=== PATIENT | male | born 1930 | race Caucasian/White ===

== ENCOUNTER 2017-11-17 07:13 | Day surgery (SDC) | payer MEDICARE ==
[~2017-11-17 07:13] MED LIST: ACET500 PO; ASPI81CH PO; BISHYD10; CALCA500CH PO; CETI10 PO; CHLO25 PO; CHOL10002 PO; CONEST.625 PO; CYAN1000 PO; Coumadin2.5 MG PO; EYE VITAMIN; FOLI1 PO; FOSI10; FOSI10 PO; GABA300 PO; GLIP2.5ER PO; HYDACE10B PO; HYOS0.375T PO; IRON150C PO; LANS30EC PO; LEVSOD112; LEVSOD50 PO; LOSA50 PO; MEMA10 PO; METO50ER PO; OLME20 PO; OMEP20ER PO; PRIM50 PO; PROP20 PO; PROSTATE; SERT25 PO; TRAZ50 PO; VALS80 PO; VICODIN 5-3001 EACH PO; WARF2.5 PO; WARF3 PO; WARF5 PO; WARF6 PO; [UNRECOGNIZED DRUG - CODE] PO; [UNRECOGNIZED DRUG - OTHER]
[2017-11-17] MEDS ORDERED: METO50ER PO (08:24)
[2017-11-17] MEDS ORDERED: PRIM50 PO (08:24)
[2017-11-17] MEDS ORDERED: CYAN500 PO (08:25)
[2017-11-17] MEDS ORDERED: LOSA50 PO (08:26)
[2017-11-17] MEDS ORDERED: CALCIUM 1,0001 EACH PO (08:27)
[2017-11-17] MEDS ORDERED: HYDR1TAB94 PO (08:27)
[2017-11-17] MEDS ORDERED: CELE200 PO (08:28)
[2018-06-25] MEDS ORDERED: WARF5 PO (14:01)
[2018-07-01] MEDS ORDERED: AMOX875 PO (10:01)
[2018-07-01] MEDS ORDERED: SACC250C PO (10:01)
== END 2017-11-17 16:17 | disposition home or self-care (01) ==
LOC: ATC 07:13
DX: I48.2 Chronic atrial fibrillation (principal); I74.3 Embolism and thrombosis of arteries of the lower extremities; Z79.01 Long term (current) use of anticoagulants; I10 Essential (primary) hypertension
CPT/HCPCS: 96372; J1650

== ENCOUNTER 2017-11-18 00:40 | Day surgery (SDC) | payer MEDICARE ==
[~2017-11-18 00:40] MED LIST changes: +CALCIUM 1,0001 EACH PO; +CELE200 PO; +CYAN500 PO; +HYDR1TAB94 PO
[2018-06-25] MEDS ORDERED: WARF5 PO (14:01)
[2018-07-01] MEDS ORDERED: AMOX875 PO (10:01)
[2018-07-01] MEDS ORDERED: SACC250C PO (10:01)
== END 2017-11-18 16:20 | disposition home or self-care (01) ==
LOC: ATC 00:40
DX: I48.2 Chronic atrial fibrillation (principal); I74.3 Embolism and thrombosis of arteries of the lower extremities; Z79.01 Long term (current) use of anticoagulants; I10 Essential (primary) hypertension
CPT/HCPCS: 96372; J1650

== ENCOUNTER 2017-11-19 03:35 | Day surgery (SDC) | payer MEDICARE ==
[2018-06-25] MEDS ORDERED: WARF5 PO (14:01)
[2018-07-01] MEDS ORDERED: SACC250C PO (10:01)
[2018-07-01] MEDS ORDERED: AMOX875 PO (10:01)
== END 2017-11-19 16:41 | disposition home or self-care (01) ==
LOC: ATC 03:35
DX: I48.2 Chronic atrial fibrillation (principal); I74.3 Embolism and thrombosis of arteries of the lower extremities; Z79.01 Long term (current) use of anticoagulants; I10 Essential (primary) hypertension
CPT/HCPCS: 96372; J1650

== ENCOUNTER 2017-12-17 02:26 | Emergency (ER) | payer MEDICARE ==
[~2017-12-17] VITALS: Ht 172.7 cm; Wt 90.7 kg
[~2017-12-17 02:26] MED LIST changes: +LEVSOD112 PO; -LEVSOD50 PO
[2017-12-17] MEDS ORDERED: WARF6 PO (03:59)
[2017-12-17 04:13] LABS: BASOPHILS ABSOLUTE AUTO 0.02 K/mm3 (0.00-0.23); BASOPHILS PERCENT AUTO 0 % (0-2); EOSINOPHILS ABSOLUTE AUTO 0.13 K/mm3 (0.00-0.68); EOSINOPHILS PERCENT AUTO 2 % (0-6); Hematocrit 36.3 % (37.0-53.0); Hemoglobin 11.9 g/dL (13.5-17.5); IMMATURE GRAN ABSOLUTE AUTO 0.04 K/mm3 (0.00-0.10); IMMATURE GRAN PERCENT AUTO 1 % (0-1); LYMPHOCYTES ABSOLUTE AUTO 1.02 K/mm3 (0.84-5.20); LYMPHOCYTES PERCENT AUTO 18 % (21-46); MONOCYTES ABSOLUTE AUTO 0.59 K/mm3 (0.16-1.47); MONOCYTES PERCENT AUTO 10 % (4-13); Mean Corpuscular HGB 30.1 pg (26.0-34.0); Mean Corpuscular HGB Conc 32.8 g/dL (31.5-36.5); Mean Corpuscular Volume 92 fL (80-100); Mean Platelet Volume 9.6 fL (9.1-12.4); NEUTROPHILS ABSOLUTE AUTO 4.03 K/mm3 (1.96-9.15); NEUTROPHILS PERCENT AUTO 69 % (41-73); Platelet Count 132 K/mm3 (150-400); RDW Coefficient Variation 14.4 % (11.7-14.2); RDW Standard Deviation 48.8 fL (35.1-46.3); Red Blood Cell Count 3.95 M/mm3 (4.30-5.90); White Blood Cell Count 5.83 K/mm3 (4.00-11.30)
[2017-12-17 04:30] LABS: Alanine Aminotransfer (ALT/SGP 75 U/L (12-78); Albumin, Blood 3.2 g/dL (3.4-5.0); Albumin/Globulin Ratio 0.9 (0.8-1.8); Alk Phos 76 U/L (50-136); Anion Gap 9 mmol/L (6-16); Aspartate Aminotrans (AST/SGOT 44 U/L (12-37); Bilirubin, Total 0.6 mg/dL (0.1-1.0); Blood Urea Nitrogen 18 mg/dL (8-24); Bun/Creatinine Ratio 23.3 (12.0-20.0); CO2, Blood 26 mmol/L (21-32); Calcium, Blood 8.2 mg/dL (8.5-10.1); Chloride, Blood 103 mmol/L (98-108); Creatinine, Blood 0.77 mg/dL (0.60-1.20); Globulin, Blood 3.6 g/dL (2.2-4.0); Glomerular Filtration Rate >60 (60-); Glucose, Blood 144 mg/dL (70-99); Potassium, Blood 3.6 mmol/L (3.5-5.5); Sodium, Blood 138 mmol/L (136-145); Total Protein, Blood 6.8 g/dL (6.4-8.2)
[2017-12-17 04:30] LABS: Influenza A Negative (NEGATIVE); Influenza B Negative (NEGATIVE)
[2017-12-17 04:38] LABS: Free Thyroxine 1.16 ng/dL (0.70-1.60)
[2017-12-17 04:39] LABS: Thyroid Stimulating Hormone 1.75 uIU/mL (0.360-4.800); Triiodothyronine, Free 1.7 pg/mL (2.18-3.98)
[2017-12-17 05:43] LABS: Source, Urine Clean Catch
[2017-12-17 05:47] LABS: Bilirubin, Urine Neg (Neg); Blood, Urine 1+ (Neg); Glucose Qualitative, Urine Neg (Neg); Ketones, Urine Neg (Neg); Leukocyte Esterase, Urine Neg (Neg); Nitrite, Urine Neg (Neg); Protein, Urine Neg (Neg); Urobilinogen, Urine NORM (Normal)
[2017-12-17 05:49] LABS: Appearance, Urine Clear (Clear); Color, Urine Yellow (P-Yellow)
[2017-12-17 05:54] LABS: Bacteria Not Seen /hpf; Squamous Epithelial Cells Not Seen /hpf (Few); White Blood Cells, Urine 0-2 /hpf (0-5)
== END 2017-12-17 06:51 | disposition home or self-care (01) ==
LOC: ER 02:26
PROVIDERS: Emergency Medicine
DX: R53.1 Weakness (principal); R53.83 Other fatigue; E03.9 Hypothyroidism, unspecified; I10 Essential (primary) hypertension; Z79.899 Other long term (current) drug therapy; Z88.6 Allergy status to analgesic agent; Z88.8 Allergy status to other drugs, medicaments and biological substances; Z86.718 Personal history of other venous thrombosis and embolism; Z87.891 Personal history of nicotine dependence
CPT/HCPCS: 51701; 71046; 80053; 81001; 84439; 84443; 84481; 85025; 87086; 87804; 99283

== ENCOUNTER 2018-05-28 16:59 | Inpatient (IN) | payer MEDICARE ==
[~2018-05-28] VITALS: Ht 188 cm; Wt 113.4 kg
[2018-05-31] MEDS ORDERED: ENOX120I SC ×2 (08:31→08:32)
[2018-06-03 07:38] LABS: International Normalized Ratio 1.08; Prothrombin Time Results 11.1 Sec (9.7-11.5)
[2018-06-04 06:14] LABS: Anion Gap 7 mmol/L (6-16); Blood Urea Nitrogen 25 mg/dL (8-24); Bun/Creatinine Ratio 24.3 (12.0-20.0); CO2, Blood 25 mmol/L (21-32); Calcium, Blood 7.8 mg/dL (8.5-10.1); Chloride, Blood 104 mmol/L (98-108); Creatinine, Blood 1.03 mg/dL (0.60-1.20); Glomerular Filtration Rate >60 (60-); Glucose, Blood 141 mg/dL (70-99); Magnesium, Blood 1.8 mg/dL (1.6-2.4); Potassium, Blood 3.8 mmol/L (3.5-5.5); Sodium, Blood 136 mmol/L (136-145)
[2018-06-04 06:33] LABS: BASOPHILS ABSOLUTE AUTO 0.03 K/mm3 (0.00-0.23); BASOPHILS PERCENT AUTO 0 % (0-2); EOSINOPHILS ABSOLUTE AUTO 0.06 K/mm3 (0.00-0.68); EOSINOPHILS PERCENT AUTO 1 % (0-6); Hemoglobin 8.5 g/dL (13.5-17.5); IMMATURE GRAN ABSOLUTE AUTO 0.13 K/mm3 (0.00-0.10); IMMATURE GRAN PERCENT AUTO 2 % (0-1); LYMPHOCYTES PERCENT AUTO 10 % (21-46); MONOCYTES ABSOLUTE AUTO 0.82 K/mm3 (0.16-1.47); MONOCYTES PERCENT AUTO 9 % (4-13); Mean Corpuscular HGB 30.5 pg (26.0-34.0); Mean Corpuscular HGB Conc 31.5 g/dL (31.5-36.5); Mean Corpuscular Volume 97 fL (80-100); Mean Platelet Volume 9.4 fL (9.1-12.4); NEUTROPHILS ABSOLUTE AUTO 6.87 K/mm3 (1.96-9.15); NEUTROPHILS PERCENT AUTO 78 % (41-73); Platelet Count 140 K/mm3 (150-400); RDW Coefficient Variation 15.6 % (11.7-14.2); RDW Standard Deviation 55.7 fL (35.1-46.3); Red Blood Cell Count 2.79 M/mm3 (4.30-5.90); White Blood Cell Count 8.81 K/mm3 (4.00-11.30)
[2018-06-05 14:02] LABS: BASOPHILS ABSOLUTE AUTO 0.03 K/mm3 (0.00-0.23); BASOPHILS PERCENT AUTO 0 % (0-2); EOSINOPHILS ABSOLUTE AUTO 0.18 K/mm3 (0.00-0.68); EOSINOPHILS PERCENT AUTO 2 % (0-6); Hematocrit 25.9 % (37.0-53.0); Hemoglobin 8.1 g/dL (13.5-17.5); IMMATURE GRAN ABSOLUTE AUTO 0.09 K/mm3 (0.00-0.10); IMMATURE GRAN PERCENT AUTO 1 % (0-1); LYMPHOCYTES PERCENT AUTO 10 % (21-46); MONOCYTES PERCENT AUTO 9 % (4-13); Mean Corpuscular HGB 30.9 pg (26.0-34.0); Mean Corpuscular HGB Conc 31.3 g/dL (31.5-36.5); Mean Corpuscular Volume 99 fL (80-100); Mean Platelet Volume 9.6 fL (9.1-12.4); NEUTROPHILS ABSOLUTE AUTO 6.44 K/mm3 (1.96-9.15); NEUTROPHILS PERCENT AUTO 78 % (41-73); Platelet Count 142 K/mm3 (150-400); RDW Coefficient Variation 15.7 % (11.7-14.2); RDW Standard Deviation 56.2 fL (35.1-46.3); Red Blood Cell Count 2.62 M/mm3 (4.30-5.90); White Blood Cell Count 8.24 K/mm3 (4.00-11.30)
== END 2018-06-06 14:20 | DRG 470 ==
LOC: SURS 06-03 06:14 → PRE IP 06-03 07:30 → SURS 06-03 13:20
PROVIDERS: Orthopaedic Surgery
PROC: BQ111ZZ Fluoroscopy of Left Hip using Low Osmolar Contrast (ICD-10-PCS; 2018-06-03)
PROC: 0SRB049 Replacement of Left Hip Joint with Ceramic on Polyethylene Synthetic Substitute, Cemented, Open Approach (ICD-10-PCS; principal; 2018-06-03 07:30)
DX: M16.12 Unilateral primary osteoarthritis, left hip (principal); I10 Essential (primary) hypertension; I25.10 Atherosclerotic heart disease of native coronary artery without angina pectoris; E03.9 Hypothyroidism, unspecified; G47.33 Obstructive sleep apnea (adult) (pediatric); K21.9 Gastro-esophageal reflux disease without esophagitis; Z88.8 Allergy status to other drugs, medicaments and biological substances; I25.2 Old myocardial infarction; Z86.718 Personal history of other venous thrombosis and embolism; Z79.01 Long term (current) use of anticoagulants; Z79.899 Other long term (current) drug therapy
CPT/HCPCS: 36415; 72170; 80048; 82947; 83735; 85025; 85610; 86850; 86900; 86901; 88300; 97110; 97116; 97161; 97530; C1713; C1776; G8978; G8979; J0171; J0330; J0690; J0735; J1650; J1885; J2370; J2710; J2795; J3010; J7120

== ENCOUNTER 2018-05-30 00:07 | Day surgery (SDC) | payer MEDICARE ==
[2018-05-31] MEDS ORDERED: ENOX120I SC ×2 (08:31→08:32)
== END 2018-05-30 16:40 | disposition home or self-care (01) ==
LOC: ATC 00:07
DX: I74.3 Embolism and thrombosis of arteries of the lower extremities (principal); Z86.711 Personal history of pulmonary embolism; I48.0 Paroxysmal atrial fibrillation
CPT/HCPCS: 96372; J1650

== ENCOUNTER 2018-05-31 07:48 | Day surgery (SDC) | payer MEDICARE ==
[2018-05-31] MEDS ORDERED: ENOX120I SC ×2 (08:31→08:32)
== END 2018-05-31 16:33 | disposition home or self-care (01) ==
LOC: ATC 07:48
DX: I74.3 Embolism and thrombosis of arteries of the lower extremities (principal); Z86.711 Personal history of pulmonary embolism; I48.0 Paroxysmal atrial fibrillation
CPT/HCPCS: 96372; J1650

== ENCOUNTER 2018-06-01 07:39 | Day surgery (SDC) | payer MEDICARE ==
[~2018-06-01 07:39] MED LIST changes: +ENOX120I SC
== END 2018-06-01 16:23 | disposition home or self-care (01) ==
LOC: ATC 07:39
DX: I74.3 Embolism and thrombosis of arteries of the lower extremities (principal); Z86.711 Personal history of pulmonary embolism; I48.0 Paroxysmal atrial fibrillation; Z79.02 Long term (current) use of antithrombotics/antiplatelets
CPT/HCPCS: 96372; J1650

== ENCOUNTER 2018-06-02 00:10 | Day surgery (SDC) | payer MEDICARE | END 2018-06-02 08:07 | disposition home or self-care (01) | LOC: ATC 00:10 | DX: I74.3 Embolism and thrombosis of arteries of the lower extremities (principal); Z86.711 Personal history of pulmonary embolism; I48.0 Paroxysmal atrial fibrillation; M16.12 Unilateral primary osteoarthritis, left hip | CPT/HCPCS: 96372; J1650 ==